=== PATIENT | male | born 1990 | race African-American/Black ===

== ENCOUNTER 2024-05-21 10:47 | Emergency (ER) | payer OTHER ==
[2024-05-21] MEDS: CYCLOBENZAPRINE 10 MG TAB PO STA (11:34)
[2024-05-21] MEDS: IBUPROFEN 800 MG TAB PO STA (11:34)
--- NOTE | 2024-05-21 12:05 | XR ---
EXAMINATION TYPE: XR shoulder complete LT, XR scapula LT DATE OF EXAM: 05/21/2024 CLINICAL INDICATION: Male, 33 years old with history of Injury/pain after climbing rope, pain TECHNIQUE: Three views of the left shoulder are obtained. 2 views left scapula. COMPARISON: None. FINDINGS: There is no acute fracture/dislocation evident in the left shoulder or scapula. The acrom ioclavicular and glenohumeral joint spaces appear within normal limits. The visualized ribs are inta ct and unremarkable. Overlying soft tissue is unremarkable. IMPRESSION: There is no acute fracture or dislocation in the left shoulder or scapula. [facility], , 05/21/2024 12:02 PM
--- NOTE | 2024-05-21 12:17 | ED ---
Upper Extremity HPI - General Chief Complaint: Extremity Injury, Upper Stated Complaint: L arm injury Time Seen by Provider: 05/21/24 11:06 Source: patient, RN notes reviewed Mode of arrival: ambulatory Limitations: no limitations - History of Present Illness Initial Comments: This is a 33-year-old male presenting with left shoulder injury (05/18) x 2 days. Patient states he was pulling up on a rope at [employer] when he suddenly experienced sharp shoulder pain that worsens with movement (09/17). Denies other injury, distal paresthesia, neck pain, distal weakness. MD Complaint: Injury to:: left, shoulder Onset/Timin -: days(s) Other Extremity Injury: Shoulder: Left Other Injuries: none Place: outdoors Severity scale (1-10): 7 Improves With: immobilization, rest Worsens With: movement of extremity Context: sports-related injury Associated Symptoms: heard/felt popping sensat - Related Data Previous Rx's Medication Instructions Recorded Cyclobenzaprine [Flexeril] 10 mg PO Q8H PRN #15 tab 05/21/24 Allergies Allergy/AdvReac Type Severity Reaction Status Date / Time banana Allergy Rash/Hives Verified 05/21/24 10:51 Review of Systems ROS Statement: Those systems with pertinent positive or pertinent negative responses have been documented in the HPI. ROS Other: All systems not noted in ROS Statement are negative. Past Medical History Past Medical History: No Reported History History of Any Multi-Drug Resistant Organisms: None Reported Past Surgical History: No Surgical Hx Reported Past Psychological History: No Psychological Hx Reported Smoking Status: Current every day smoker Past Alcohol Use History: Occasional Past Drug Use History: None Reported General Exam Limitations: no limitations General appearance: alert, in no apparent distress Head exam: Present: atraumatic, normocephalic, normal inspection Eye exam: Present: normal appearance, PERRL, EOMI. Absent: scleral icterus, conjunctival injection, periorbital swelling ENT exam: Present: normal exam, mucous membranes moist Neck exam: Present: normal inspection. Absent: tenderness, meningismus, lymphadenopathy Respiratory exam: Present: normal lung sounds bilaterally. Absent: respiratory distress, wheezes, rales, rhonchi, stridor Cardiovascular Exam: Present: regular rate, normal rhythm, normal heart sounds. Absent: systolic murmur, diastolic murmur, rubs, gallop, clicks GI/Abdominal exam: Present: soft, normal bowel sounds. Absent: distended, tenderness, guarding, rebound, rigid Extremities exam: Present: normal inspection, full ROM, normal capillary refill. Absent: tenderness, pedal edema, joint swelling, calf tenderness Left Shoulder Exam: Present: full ROM, tenderness (Positive left trapezius muscle spasm point tenderness and muscle spasm and point tenderness along the scapular spine.), other (Pain with empty can test. Strength 5/5. Negative apprehension, Barry, belly press, liftoff). Absent: swelling, abrasion, ecchymosis, deformity, crepitus, dislocation, erythema, tenderness over AC joint Upper Arm exam: Present: normal inspection, full ROM Elbow exam: Present: normal inspection, full ROM Forearm Wrist exam: Present: normal inspection, full ROM Hand Wrist exam: Present: normal inspection, full ROM, other (Distal neurovascular intact. Radial pulse +2, capillary refill less than 2 seconds) Back exam: Present: normal inspection Neurological exam: Present: alert, oriented X3, CN II-XII intact Psychiatric exam: Present: normal affect, normal mood Skin exam: Present: warm, dry, intact, normal color. Absent: rash Course Vital Signs 05/21/24 05/21/24 10:50 12:46 Temperature 98.7 F 98.0 F Pulse Rate 70 68 Respiratory 18 20 Rate Blood Pressure 128/83 126/80 O2 Sat by Pulse 98 98 Oximetry Medical Decision Making - Medical Decision Making Was pt. sent in by a medical professional or institution (, PA, PHARMACY ANALYST, urgent care, hospital, or alf...) When possible be specific @ -No Did you speak to anyone other than the patient for history (EMS, parent, family, police, friend...)? What history was obtained from this source @ -No Did you review nursing and triage notes (agree or disagree)? Why? @ -I reviewed and agree with nursing and triage notes Were old charts reviewed (outside hosp., previous admission, EMS record, old EKG, old radiological studies, urgent care reports/EKG's, alf records)? Report findings @ -No old charts were reviewed Differential Diagnosis (chest pain, altered mental status, abdominal pain women, abdominal pain men, vaginal bleeding, weakness, fever, dyspnea, syncope, headache, dizziness, GI bleed, back pain, seizure, CVA, palpatations, mental health, musculoskeletal)? @ -Differential Musculoskeletal Muscular strain, contusion, ligament sprain, fracture, arthritis, septic arthritis, bursitis, cellulitis, muscle spasm, nerve compression, DVT, arterial occlusion, herpes zoster, electrolyte abnormality, tumor.... This is not meant to be in all inclusive list EKG interpreted by me (3pts min.). @ -Not done X-rays interpreted by me (1pt min.). @ -Left shoulder/scapula x-ray shows no acute fracture or dislocation. CT interpreted by me (1pt min.). @ -None done U/S interpreted by me (1pt. min.). @ -None done What testing was considered but not performed or refused? (CT, X-rays, U/S, labs)? Why? @ -None What meds were considered but not given or refused? Why? @ -None Did you discuss the management of the patient with other professionals (professionals i.e. , PA, PHARMACY ANALYST, lab, RT, psych nurse, high school social studies teacher, mri supervisor, t eacher, traffic division commanding officer, skilled nursing case manager)? Give summary @ -No Was smoking cessation discussed for >3mins.? @ -No Was critical care preformed (if so, how long)? @ -No Were there social determinants of health that impacted care today? How? (Homelessness, low income, unemployed, alcoholism, drug addiction, transportation, low edu. Level, literacy, decrease access to med. care, custodial, rehab)? @ -No Was there de-escalation of care discussed even if they declined (Discuss DNR or withdrawal of care, Hospice)? DNR status @ -No What co-morbidities impacted this encounter? (DM, HTN, Smoking, COPD, CAD, Cance r, CVA, ARF, Chemo, Hep., AIDS, mental health diagnosis, sleep apnea, morbid obesity)? @ -None Was patient admitted / discharged? Hospital course, mention meds given and route, prescriptions, significant lab abnormalities, going to OR and other pertinent info. @ -Left shoulder/scapula x-ray shows no acute fracture or dislocation. Physical exam revealed no concerning findings with full strength of rotator cuff muscles and only muscle spasms of left scapular spine and left trapezius. Patient initially provided p.o. Flexeril and Motrin 800, declining IM administration. Flexeril sent to patient's pharmacy. Work note with left upper extremity lifting and movement restrictions provided upon request. Advised follow-up with orthopedics regarding ongoing shoulder pain. Advised RICE and NSAIDs. Discussed patient with Dr. Valencia. Undiagnosed new problem with uncertain prognosis? @ -No Drug Therapy requiring intensive monitoring for toxicity (Heparin, Nitro, Insulin, Cardizem)? @ -No Were any procedures done? @ -No Diagnosis/symptom? @ -Shoulder strain Acute, or Chronic, or Acute on Chronic? @ -Acute Uncomplicated (without systemic symptoms) or Complicated (systemic symptoms)? @ -Uncomplicated Side effects of treatment? @ -No Exacerbation, Progression, or Severe Exacerbation? @ -No Poses a threat to life or bodily function? How? (Chest pain, [place], [place], pneumonia, PE, COPD, DKA, ARF, appy, cholecystitis, CVA, Diverticulitis, Homicidal, Suicidal, threat to staff... and all critical care pts) @ -No Disposition Clinical Impression: Strain of shoulder Disposition: HOME SELF-CARE Condition: Good Instructions (If sedation given, give patient instructions): Shoulder Sprain (ED) Prescriptions: Cyclobenzaprine [Flexeril] 10 mg PO Q8H PRN #15 tab PRN Reason: Spasms Is patient prescribed a controlled substance at d/c from ED?: No Referrals: None,Stated [Primary Care Provider] - 1-2 days Peter Nunn MD [STAFF PHYSICIAN] - 1-2 days Time of Disposition: 12:31
[2024-05-21 12:48] VITALS: BP 126/80; PULSE 68; RESP 20; TEMP 98
== END 2024-05-21 12:47 | disposition home or self-care (01) ==
LOC: EC 10:47
DX: S46.912A Strain of unspecified muscle, fascia and tendon at shoulder and upper arm level, left arm, initial encounter (principal); F17.200 Nicotine dependence, unspecified, uncomplicated; Z91.018 Allergy to other foods; X50.0XXA Overexertion from strenuous movement or load, initial encounter
CPT/HCPCS: 99283